=== PATIENT | female | born 1985 | race Caucasian/White ===

== ENCOUNTER 2017-07-12 17:43 | Emergency (ER) | payer OTHER ==
[~2017-07-12] VITALS: Ht 160 cm; Wt 111.9 kg
[~2017-07-12 17:43] MED LIST: MTR600X PO; PRENTAB26 PO; SERT50TA PO
[2017-07-12 17:49] VITALS: TEMP 36.6; Ht 160 cm; Wt 111.9 kg
--- NOTE | 2017-07-12 18:12 | DIAGNOSTIC IMAGING REPORT ---
L FOOT MIN 3 VIEWS ROUTINE CLINICAL HISTORY: Left foot pain following injury. COMPARISON: None FINDINGS: Alignment of the left foot is anatomic. Tarsometatarsal joints are intact. There is no acute fracture within the left foot. Minimal plantar calcaneal spurring is noted. Os trigonum is incidentally noted. IMPRESSION: No acute fracture or dislocation within the left foot. Electronically signed by: Jono Moreno M.D. 07/12/2017 6:10 PM Dictated Date/Time: 07/12/2017 6:08 PM
--- NOTE | 2017-07-12 19:03 | EMERGENCY ROOM VISIT NOTE ---
History First contact with patient: 17:53 Chief Complaint: HEEL PAIN Stated Complaint: PAIN IN LFT HEEL History of Present Illness The patient is a 32 year old female who presents to the Emergency Room with complaints of pain in her left heel. 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 She states that she picked up a 3-year-old and was carrying them. Her foot caught on a corner and the left heel slammed into the ground. She reports pain in the heel while walking since the injury occurred. She rates her discomfort a 5/10. She denies numbness or weakness. She does report she has had some chronic pain in this foot and believes she may have after fasciitis. Review of Systems A complete 10 point review of systems was reviewed with the patient with pertinent positives and negatives as per history of present illness. All else were negative. Past Medical/Surgical History Medical Problems: (1) Amniotic fluid leaking Social History Smoking Status: Never Smoker Alcohol Use: none Drug Use: none Marital Status: Occupation Status: employed Current/Historical Medications Scheduled Sertraline (Zoloft), 50 MG PO DAILY Physical Exam Vital Signs Date Time Temp Pulse Resp B/P (MAP) Pulse Ox O2 Delivery O2 Flow Rate FiO2 07/12/17 19:16 72 18 129/75 99 07/12/17 17:49 36.6 79 18 127/78 99 Room Air Physical Exam VITALS: Vitals are noted on the nurse's note and reviewed by myself. Vital signs stable. GENERAL: This is a 32-year-old female, in no acute distress, nondiaphoretic, well-developed well-nourished. MUSCULOSKELETAL: No deformity of the left foot. No erythema or ecchymosis. There is some mild tenderness to palpation plantar aspect of the left heel. NEURO: Patient was alert and oriented to person place and time. Medical Decision & Procedures ER Provider Diagnostic Interpretation: L FOOT MIN 3 VIEWS ROUTINE CLINICAL HISTORY: Left foot pain following injury. COMPARISON: None FINDINGS: Alignment of the left foot is anatomic. Tarsometatarsal joints are intact. There is no acute fracture within the left foot. Minimal plantar calcaneal spurring is noted. Os trigonum is incidentally noted. IMPRESSION: No acute fracture or dislocation within the left foot. Medical Decision Differential diagnosis includes fracture, contusion, sprain, among others. The patient was evaluated as above. X-ray of the left foot was obtained and shows no acute bony abnormalities. The patient does have some heel spurring. She was encouraged to use anti-inflammatories at home and elevate and ice the foot for pain. She will follow-up with her primary care provider as needed. She verbalized understanding of my assessment and treatment plan and was discharged home in good condition. Medication Reconcilliation Current Medication List: was personally reviewed by me Blood Pressure Screening Patient's blood pressure: Normal blood pressure Impression Primary Impression: Pain of left heel Departure Information Dispostion Home / Self-Care Condition GOOD Referrals Alyse Gatica DO (PCP) Patient Instructions My [facility] [employer] Additional Instructions Naproxen, twice daily for 2 weeks. Rest and keep off the foot as much as possible. Follow-up with your primary care provider for further evaluation as needed.
[2017-07-12 19:16] VITALS: BP 129/75; PULSE 72; O2SAT 99
== END 2017-07-12 19:17 | disposition home or self-care (01) ==
LOC: C.EDB 17:44 → C.EDD 19:17
DX: M79.672 Pain in left foot (principal)